=== PATIENT | female | born 1980 | race Caucasian/White ===

== ENCOUNTER 2016-10-23 20:10 | Emergency (ER) | payer BC, OTHER ==
[~2016-10-23 20:10] MED LIST: AMOXICILLIN500 MG PO; FLEXERIL10 MG PO; IBUPROFEN600 M1 PO; NO HOME MEDS; PERCOCET 5/3251 TAB PO; TYLENOL W/CODEI1 TAB PO
[2016-10-23] MEDS ORDERED: ULTRAM50 M1 PO (20:37)
== END 2016-10-23 20:53 ==
LOC: EDMED 20:10
DX: M25.511 Pain in right shoulder (principal); M19.90 Unspecified osteoarthritis, unspecified site; F32.9 Major depressive disorder, single episode, unspecified; Z98.890 Other specified postprocedural states; Z98.51 Tubal ligation status
CPT/HCPCS: J1885